=== PATIENT | female | born 1980 | race Caucasian/White ===

== ENCOUNTER 2022-06-21 20:33 | Emergency (ER) | payer MEDICAID, OTHER ==
[~2022-06-21] VITALS: Ht 165.1 cm; Wt 74.5 kg
[2022-06-21 23:37] VITALS: BP 105/57
== END 2022-06-21 23:45 | disposition home or self-care (01) ==
LOC: ER 20:33
DX: M54.50 Low back pain, unspecified (principal); M54.2 Cervicalgia; V43.52XA Car driver injured in collision with other type car in traffic accident, initial encounter; Y93.89 Activity, other specified; Y92.89 Other specified places as the place of occurrence of the external cause; Y99.8 Other external cause status